=== PATIENT | female | born 1930 | race Caucasian/White ===

== ENCOUNTER 2019-10-28 16:16 | Emergency (ER) | payer MEDICARE, OTHER ==
[~2019-10-28] VITALS: Ht 162.6 cm; Wt 54.4 kg
[2019-10-28] MEDS ORDERED: ALLERGY MEDICAT25 MG PO (16:46)
[2019-10-28] MEDS ORDERED: FLONASE 0.05%50 MCG NARES (16:47)
[2019-10-28] MEDS ORDERED: CRANBERRY 6,001 EACH PO (16:47)
[2019-10-28] MEDS ORDERED: CULTURELLE KID1 EAC1 PO (16:47)
[2019-10-28] MEDS ORDERED: DORZOLAMIDE HCL10 ML OPHTHALMIC (16:47)
[2019-10-28] MEDS ORDERED: LATANOPROST 0.2.5 ML OPHTHALMIC (16:48)
[2019-10-28] MEDS ORDERED: MIRALAX119 GM PO (16:48)
[2019-10-28] MEDS ORDERED: GINKGO60 MG PO (16:48)
[2019-10-28] MEDS ORDERED: RESTASIS1 EACH OPHTHALMIC (16:49)
[2019-10-28] MEDS ORDERED: RECLAST 55 MG/1002 IVPB (16:49)
[2019-10-28] MEDS ORDERED: OMEPRAZOLE 20 M20 M1 PO (16:49)
[2019-10-28] MEDS ORDERED: VITAMIN B-1100 M2 PO (16:51)
[2019-10-28] MEDS ORDERED: SINUS RINSE ST1 EACH NASAL (16:51)
[2019-10-28] MEDS ORDERED: VITAMIN B-12100 MC1 PO (16:51)
[2019-10-28] MEDS ORDERED: TURMERIC500 M2 PO (16:52)
[2019-10-28] MEDS ORDERED: VITAMIN B-6100 MG PO (16:52)
[2019-10-28] MEDS ORDERED: VITAMIN D310 MC1 PO (16:52)
[2019-10-28] MEDS ORDERED: KRILL OIL 3001 EACH PO (16:53)
[2019-10-28 17:21] LABS: CALCIUM 8.4 mg/dL (8.5-10.1); CREATININE 0.8 mg/dL (0.6-1.3); POTASSIUM 3.9 mmol/L (3.5-5.1)
[2019-10-28] MEDS ORDERED: OXYCODONE HCL 55 MG PO (20:16)
[2019-10-28] MEDS ORDERED: MELOXICAM15 MG PO (20:16)
[2019-10-28 20:45] VITALS: BP 170/72
== END 2019-10-28 20:45 | disposition still patient (30) ==
LOC: M.ERS 16:16
PROVIDERS: Emergency Medicine Emergency Medical Services
DX: S92.352A Displaced fracture of fifth metatarsal bone, left foot, initial encounter for closed fracture (principal); S70.02XA Contusion of left hip, initial encounter; R07.81 Pleurodynia; K21.9 Gastro-esophageal reflux disease without esophagitis; M19.90 Unspecified osteoarthritis, unspecified site; Z90.49 Acquired absence of other specified parts of digestive tract; Z88.5 Allergy status to narcotic agent; W18.39XA Other fall on same level, initial encounter; Y93.89 Activity, other specified; Y92.89 Other specified places as the place of occurrence of the external cause; Y99.8 Other external cause status